=== PATIENT | male | born 1970 | race Two or more races ===

== ENCOUNTER 2019-08-08 21:56 | Emergency (ER) | payer MEDICAID ==
[~2019-08-08] VITALS: Ht 162.6 cm; Wt 65.3 kg
[2019-08-08 22:02] VITALS: BP 135/89; Ht 162.6 cm; Wt 65.3 kg
[2019-08-08 22:43] LABS: BASOPHIL % 0.7 % (0-2); PLATELET COUNT 277 x10^3mcL (130-400); RED CELL DISTRIBUTION WIDTH 13.3 % (11.5-14.5)
[2019-08-08 23:02] LABS: ALBUMIN 3.8 g/dL (3.4-5.0); CARBON DIOXIDE 26 mmol/L (21-32); CHLORIDE SERUM 104 mmol/L (98-107); CREATININE SERUM 0.9 mg/dL (0.7-1.3); GFR1 > 60 mL/min; GLUCOSE SERUM 107 mg/dL (74-106); POTASSIUM SERUM 4.1 mmol/L (3.5-5.1); SODIUM SERUM 139 mmol/L (136-145); TOTAL PROTEIN, SERUM 7.8 g/dL (6.4-8.2)
[2019-08-08 23:03] LABS: ALKALINE PHOSPHATASE 81 U/L (46-116); ALT/SGPT 29 U/L (16-63); AST/SGOT 17 U/L (15-37); BILIRUBIN TOTAL 0.53 mg/dL (0.20-1.00); CALCIUM 8.3 mg/dL (8.5-10.1)
== END 2019-08-09 00:10 | disposition home or self-care (01) ==
LOC: ED 21:56
PROVIDERS: Emergency Medicine
DX: H11.32 Conjunctival hemorrhage, left eye (principal); Z20.2 Contact with and (suspected) exposure to infections with a predominantly sexual mode of transmission
CPT/HCPCS: 36415; 87491; 87591; J0696